=== PATIENT | female | born 1985 | race Caucasian/White ===

== ENCOUNTER 2016-11-20 09:54 | Emergency (ER) | payer MEDICAID ==
[~2016-11-20] VITALS: Ht 162.6 cm; Wt 99.0 kg
[2016-11-20 10:02] VITALS: BP 133/76
== END 2016-11-20 13:12 | disposition home or self-care (01) ==
LOC: ED 09:54
DX: S40.861A Insect bite (nonvenomous) of right upper arm, initial encounter (principal); L08.9 Local infection of the skin and subcutaneous tissue, unspecified; W57.XXXA Bitten or stung by nonvenomous insect and other nonvenomous arthropods, initial encounter; Y93.89 Activity, other specified; Y92.89 Other specified places as the place of occurrence of the external cause; Y99.8 Other external cause status
CPT/HCPCS: J0696